=== PATIENT | male | born 2000 | race Two or more races ===

== ENCOUNTER 2024-08-22 00:41 | Emergency (ER) | payer MEDICAID, OTHER ==
[~2024-08-22] VITALS: Ht 180.3 cm; Wt 62.7 kg
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
[2024-08-22] MEDS: HYDROcodone-ACET 5/325MG TAB PO ONE (02:13)
[2024-08-22 02:15] VITALS: BP 103/66; PULSE 79; RESP 18; TEMP 98.4; O2SAT 96
[2024-08-22] MEDS: LET TOPICAL SOLN 5 ML TOP ONE (02:38)
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
[2024-08-22] MEDS ORDERED: IBUP-1456 PO (03:25)
[2024-08-22] MEDS ORDERED: TIZA-142 PO (03:25)
== END 2024-08-22 03:31 | disposition home or self-care (01) ==
LOC: ER 00:41
DX: S01.01XA Laceration without foreign body of scalp, initial encounter (principal); S80.02XA Contusion of left knee, initial encounter; S80.12XA Contusion of left lower leg, initial encounter; S05.12XA Contusion of eyeball and orbital tissues, left eye, initial encounter; V43.52XA Car driver injured in collision with other type car in traffic accident, initial encounter; Y93.I9 Activity, other involving external motion; Y92.488 Other paved roadways as the place of occurrence of the external cause; Y99.8 Other external cause status
CPT/HCPCS: 70450; 70486; 73562

== ENCOUNTER 2024-09-06 13:17 | Emergency (ER) | payer SELFPAY ==
[~2024-09-06] VITALS: Ht 180.3 cm; Wt 65.9 kg
[2024-09-06 13:42] VITALS: BP 143/88; PULSE 85; RESP 17; O2SAT 99
== END 2024-09-06 16:37 | disposition left against medical advice (07) ==
LOC: ER 13:17
DX: S01.01XD Laceration without foreign body of scalp, subsequent encounter (principal); Z53.21 Procedure and treatment not carried out due to patient leaving prior to being seen by health care provider; X58.XXXD Exposure to other specified factors, subsequent encounter

== ENCOUNTER 2024-09-10 17:56 | Emergency (ER) | payer SELFPAY ==
[~2024-09-10] VITALS: Ht 185.4 cm; Wt 62.3 kg
[2024-09-10 18:21] VITALS: BP 116/69; PULSE 84; RESP 18; TEMP 97.9; O2SAT 96
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
== END 2024-09-10 19:53 | disposition home or self-care (01) ==
LOC: ER 17:56
DX: S01.81XD Laceration without foreign body of other part of head, subsequent encounter (principal); X58.XXXD Exposure to other specified factors, subsequent encounter